=== PATIENT | female | born 1950 | race Caucasian/White ===

== ENCOUNTER 2023-05-14 19:25 | Inpatient (IN) | payer MEDICARE, OTHER ==
[~2023-05-14] VITALS: Ht 154.9 cm; Wt 66.7 kg
[2023-05-14] MEDS ORDERED: CEFTRIAXONE 1GM BAG (ER ONLY) 50 ML IV ONE ×2 (20:00→20:11)
[2023-05-14] MEDS ORDERED: methylPREDNISolone SOD SUCC 125 MG/2ML VIAL IV ONE (20:00)
[2023-05-14] MEDS ORDERED: methylPREDNISolone SOD SUCC 125 MG/2ML VIAL ONE (20:11)
[2023-05-14 20:18] LABS: BASOPHILS # (AUTO) 0.1 K/uL (0.0-0.2); BASOPHILS % (AUTO) 0.6 % (0.0-2.0); EOSINOPHILS # (AUTO) 0.1 K/uL (0.0-0.7); EOSINOPHILS % (AUTO) 0.4 % (0.0-6.0); HEMATOCRIT 40 % (33-45); HEMOGLOBIN 13.3 g/dL (11.5-14.8); LYMPHOCYTES # (AUTO) 1.1 K/uL (0.8-4.8); MEAN CORPUSCULAR HEMOGLOBIN 30 PG (26.0-33.0); MEAN CORPUSCULAR HGB CONC 33 g/dl (31.0-36.0); MEAN CORPUSCULAR VOLUME 91 fL (82-100); MONOCYTES % (AUTO) 8.5 % (2.0-12.0); NEUTROPHILS # (AUTO) 9.3 K/uL (1.8-8.9); NEUTROPHILS % (AUTO) 80.5 % (43.0-81.0); PLATELET COUNT (AUTO) 337 K/uL (150-450); RED BLOOD CELL COUNT(AUTO) 4.38 MIL/uL (4.0-5.2); RED CELL DISTRIBUTION WIDTH 13.1 % (11.5-15.0); WHITE BLOOD COUNT (AUTO) 11.5 K/uL (4.3-11.0)
[2023-05-14 20:25] LABS: INR 0.98 (0.91-1.10); PARTIAL THROMBOPLASTIN TIME 25.6 SEC (24.3-34.3); PROTHROMBIN TIME 10.4 SECS (9.2-11.1)
[2023-05-14 20:27] LABS: CALCIUM, SERUM 9.1 mg/dL (8.5-10.1); CARBON DIOXIDE 29 mmol/L (21-32); CHLORIDE 98 mmol/L (98-107); CREATININE 0.5 mg/dL (0.6-1.3); GLUCOSE 115 mg/dL (74-106); POTASSIUM 3.5 mmol/L (3.5-5.1); SODIUM SERUM 134 mmol/L (136-145); UREA NITROGEN, BLOOD 7 mg/dL (7-18)
[2023-05-14 20:33] LABS: ALANINE AMINOTRANSFERASE 20 U/L (12-78); ALBUMIN 4.2 g/dL (3.4-5.0); ALKALINE PHOSPHATASE 80 U/L (46-116); ASPARTATE AMINOTRANSFERASE 13 U/L (15-37); BILIRUBIN,DIRECT 0.1 mg/dL (0.0-0.2); BILIRUBIN,TOTAL 0.4 mg/dL (0.2-1.0); TOTAL PROTEIN, SERUM 7.9 g/dL (6.4-8.2)
[2023-05-14 20:38] LABS: LACTIC ACID 2.5 mmol/L (0.4-2.0)
[2023-05-14] MEDS ORDERED: IV NS 0.9% 250 ML IV ONE (20:56)
[2023-05-14] MEDS ORDERED: IOHEXOL-300 100 ML VIAL IV ONE (20:56)
[2023-05-14] MEDS ORDERED: diphenhydrAMINE HCL 50 MG/ML VIAL IV ONE (22:00)
[2023-05-14] MEDS ORDERED: KETOROLAC TROMETHAMINE 15 MG/ML VIAL IV ONE (22:00)
[2023-05-14] MEDS ORDERED: KETOROLAC TROMETHAMINE 15 MG/ML VIAL ONE (22:01)
[2023-05-14] MEDS ORDERED: diphenhydrAMINE HCL 50 MG/ML VIAL ONE (22:01)
[2023-05-15] MEDS ORDERED: MAGNESIUM HYDROXIDE 30 ML UDC PO PRN (01:30)
[2023-05-15] MEDS ORDERED: ENOXAPARIN SODIUM 40 MG/0.4 ML DISP.SYRIN SQ SCH (01:30)
[2023-05-15] MEDS ORDERED: IV NS 0.9% 1,000 ML IV ONE (01:30)
[2023-05-15] MEDS ORDERED: IV NS 0.9% 1,000 ML IV PRN (01:30)
[2023-05-15] MEDS ORDERED: MORPHINE SULFATE INJ 2 MG/ML DISP.SYRIN IV PRN (01:30)
[2023-05-15] MEDS ORDERED: Z GUARD REMEDY 4 OZ OINT TP PRN (01:30)
[2023-05-15] MEDS ORDERED: ONDANSETRON HCL/PF 4 MG/2 ML VIAL IVP PRN (01:30)
[2023-05-15] MEDS ORDERED: ACETAMINOPHEN 325 MG TABLET PO PRN (01:30)
[2023-05-15 01:47] LABS: APPEARANCE,URINE CLEAR (CLEAR); BILIRUBIN,URINE NEGATIVE (NEGATIVE); BLOOD, URINE 1+ Ery/uL (NEGATIVE); COLOR,URINE YELLOW (YELLOW); KETONES,URINE NEGATIVE (NEGATIVE); LEUKOCYTE ESTERASE ,URINE NEGATIVE (NEGATIVE); NITRITE, URINE NEGATIVE (NEGATIVE); PROTEIN,URINE NEGATIVE (NEGATIVE); UGLUCOSE NEGATIVE (NEGATIVE); UROBILINOGEN,URINE 0.2 EU/dL (0.2)
[2023-05-15 02:09] LABS: ADD URINE CULTURE NO; BACTERIA,URINE None seen /HPF (None Seen); WBC,URINE 0-2 /HPF (0-3)
[2023-05-15] MEDS ORDERED: VANCOMYCIN 1.5 GM in IV D5W 500ml IV ONE (03:30)
[2023-05-15 03:35] VITALS: BP 151/76; TEMP 97.7; O2SAT 99
[2023-05-15] MEDS ORDERED: VANCOMYCIN 1 GM /D5W 250 ML PB IV ONE (03:38)
[2023-05-15 08:11] LABS: BASOPHILS % (AUTO) 0.3 % (0.0-2.0); HEMATOCRIT 38 % (33-45); HEMOGLOBIN 12.5 g/dL (11.5-14.8); LYMPHOCYTES # (AUTO) 0.7 K/uL (0.8-4.8); MEAN CORPUSCULAR HEMOGLOBIN 30 PG (26.0-33.0); MEAN CORPUSCULAR HGB CONC 33 g/dl (31.0-36.0); MEAN CORPUSCULAR VOLUME 92 fL (82-100); MONOCYTES # (AUTO) 0.2 K/uL (0.1-1.30); MONOCYTES % (AUTO) 1.8 % (2.0-12.0); NEUTROPHILS # (AUTO) 8.4 K/uL (1.8-8.9); NEUTROPHILS % (AUTO) 89.9 % (43.0-81.0); PLATELET COUNT (AUTO) 293 K/uL (150-450); RED BLOOD CELL COUNT(AUTO) 4.17 MIL/uL (4.0-5.2); RED CELL DISTRIBUTION WIDTH 13.4 % (11.5-15.0); WHITE BLOOD COUNT (AUTO) 9.3 K/uL (4.3-11.0)
[2023-05-15 08:50] LABS: CALCIUM, SERUM 8.8 mg/dL (8.5-10.1); CREATININE 0.7 mg/dL (0.6-1.3); POTASSIUM 4.2 mmol/L (3.5-5.1)
[2023-05-15 09:16] LABS: LACTIC ACID 2.9 mmol/L (0.4-2.0)
[2023-05-15] MEDS ORDERED: GABA-532 PO (10:59)
[2023-05-15] MEDS ORDERED: OMEP1PAC7 PO (10:59)
[2023-05-15] MEDS ORDERED: METO50TA16 PO (10:59)
[2023-05-15] MEDS ORDERED: HYDR-4076 PO (10:59)
[2023-05-15] MEDS ORDERED: ERGO500093 PO (10:59)
[2023-05-15] MEDS ORDERED: CLON0.5T4 PO (10:59)
[2023-05-15] MEDS ORDERED: CLON0.1T PO (10:59)
[2023-05-15] MEDS ORDERED: OLME40TA18 PO (10:59)
[2023-05-15] MEDS ORDERED: BROM3DRO LEFTEYE (10:59)
[2023-05-15] MEDS ORDERED: ASPI-1420 PO (10:59)
[2023-05-15] MEDS ORDERED: ZOLP5TAB8 PO (10:59)
[2023-05-15] MEDS ORDERED: VERA180T11 PO (10:59)
[2023-05-15] MEDS ORDERED: IBUP-1955 PO (10:59)
[2023-05-15] MEDS ORDERED: DICL100G34 TP (10:59)
[2023-05-15] MEDS ORDERED: ALBU18HF2 INH (10:59)
[2023-05-15] MEDS ORDERED: DONE5TAB34 PO (10:59)
[2023-05-15] MEDS ORDERED: DICL25TA10 PO (10:59)
[2023-05-15] MEDS ORDERED: PRED5DRO17 LEFTEYE (10:59)
[2023-05-15] MEDS ORDERED: clonazePAM 0.5 MG TABLET PO PRN (11:30)
[2023-05-15] MEDS ORDERED: hydrALAZINE HCL 25 MG TABLET PO PRN (11:30)
[2023-05-15] MEDS ORDERED: ALBUTEROL FS 2.5 MG/0.5 ML VIAL.NEB NEB PRN (12:00)
[2023-05-15] MEDS ORDERED: CLIN150C16 PO (14:10)
[2023-05-15] MEDS ORDERED: VANCOMYCIN 1 GM in IV D5W 250ml IV SCH (15:00)
[2023-05-15 15:56] VITALS: BP 165/98
[2023-05-15] MEDS ORDERED: prednisoLONE ACETATE 1% SUSP 5 ML BOTTLE LEFTEYE SCH (17:00)
[2023-05-15] MEDS ORDERED: CEFTRIAXONE 1 G in IV D5W 50 ML IV SCH (21:00)
[2023-05-15] MEDS ORDERED: GABAPENTIN 100 MG CAPSULE PO SCH (22:00)
[2023-05-16] MEDS ORDERED: VERAPAMIL SR 180 MG CAP PO SCH (09:00)
[2023-05-16] MEDS ORDERED: ASPIRIN EC 81 MG TABLET.DR PO SCH (09:00)
[2023-05-16] MEDS ORDERED: DONEPEZIL 5 MG TABLET PO SCH (09:00)
[2023-05-16] MEDS ORDERED: LOSARTAN POTASSIUM 50 MG TABLET PO SCH (09:00)
[2023-05-16] MEDS ORDERED: METOPROLOL SUCCINATE 50 MG TAB.SR.24H PO SCH (09:00)
== END 2023-05-15 18:20 | disposition home or self-care (01) | DRG 155 ==
LOC: ER 19:34 → MED 05-15 02:49
PROVIDERS: ADMIT Nurse Practitioner Family; ATTEND Nurse Practitioner Acute Care
DX: K11.21 Acute sialoadenitis (principal); E87.1 Hypo-osmolality and hyponatremia; E87.20 Acidosis, unspecified; K11.23 Chronic sialoadenitis; E86.0 Dehydration; D72.829 Elevated white blood cell count, unspecified; I10 Essential (primary) hypertension; J45.909 Unspecified asthma, uncomplicated; R13.10 Dysphagia, unspecified; K11.5 Sialolithiasis; Z20.822 Contact with and (suspected) exposure to COVID-19
CPT/HCPCS: 36415; 70491-TC; 71045-TC; 80048-TC; 80076-TC; 81001; 83605-TC; 83735-TC; 85025-TC; 85730-TC; 86403-TC; 87040-TC; 87086-TC; A4223; C9803; G0378; J0696; J1200; J1650; J1885; J2930; J3370; J7030; J7050; J7060; Q9967